=== PATIENT | female | born 1980 | race Caucasian/White ===

== ENCOUNTER → 2016-12-05 | Day surgery (SDC) | payer OTHER ==
[~2016-12-05] MED LIST: HYDROCODON-ACE1 EA12 PO; HYDROCODONE-APA1 T54 PO; PHENERGAN PO; TRAMADOL HCL50 M1 PO
--- NOTE | ~2016-12-05 | OR ---
Unit #: [id number] #: [id number] Patient: NOÉ FLORES [id number] [address] [place], [place] [address] [id number] O MR#: [id number] NAME: NOÉ FLORES ROOM: Date of Procedure: 12/05/2016 Admission Date: 12/05/2016 Surgeon: Carlos A Sprague M.D. : 1980 Attending Physician: Carlos A Sprague M.D. Referring Physician: Carlos A Sprague M.D. OPERATIVE REPORT PREOPERATIVE DIAGNOSIS Arthrofibrosis, status post right knee unicompartmental replacement. POSTOPERATIVE DIAGNOSIS Arthrofibrosis, status post right knee unicompartmental replacement. PROCEDURE PERFORMED Manipulation, right knee. ESTIMATED BLOOD LOSS Zero. ANESTHESIA General. DESCRIPTION OF PROCEDURE The patient was brought to the operating room, given a general anesthetic. She had full extension preoperatively and about 75 degrees of flexion. We were able to manipulate her knee with palpable and audible release of adhesions with flexion to 125 degrees. The knee was cycled through range of motion two or three times and then the manipulation was complete. Her general anesthetic was reversed and she was transferred to the recovery room. Dictated by... Jagruti Love/magda TD: 12/05/2016 16:08 JOB #: [id number] OPERATIVE REPORT X Carlos A Sprague MD X PROCEDURE OPERATIVE NOTE
[2016-12-05 08:42] LABS: URINE APPEARANCE CLOUDY; URINE BILIRUBIN NEG (NEG); URINE BLOOD 2+ (NEG); URINE COLOR YELLOW; URINE GLUCOSE NEG (NEG); URINE KETONE NEG (NEG); URINE LEUKOCYTE ESTERASE NEG (NEG); URINE NITRATE NEG (NEG); URINE PROTEIN NEG (NEG); URINE SPECIFIC GRAVITY 1.028 (1.003-1.035); URINE UROBILINOGEN 0.2 MG/DL (NEG)
[2016-12-05 08:44] LABS: CULTURE INDICATED? YES; URINE BACTERIA AUWI 2+ (NEGATIVE); URINE SQUAMOUS EPITHELIAL CELL FEW /[HPF]; UWBCS1 AUWI 0-2 (0-5)
[2016-12-05 08:44] LABS: HEMATOCRIT 37.2 % (35.0-45.0); HEMOGLOBIN 12.1 gm/dL (12.0-16.0); MEAN CELL VOLUME 79.6 FL (83-96); MEAN CORPUSCULAR HEMOGLOBIN 25.8 PG (28-34); MEAN CORPUSCULAR HGB CONC 32.4 g/dL (30-36); MEAN PLATELET VOLUME 8.4 FL (6.5-11.5); RED BLOOD COUNT 4.67 X10e (3.90-5.30); RED CELL DISTRIBUTION WIDTH 15.2 % (11.0-15.5); WHITE BLOOD COUNT 6.8 X10e3 (4.0-10.5)
[2016-12-05 09:12] LABS: BLOOD UREA NITROGEN 17 mg/dL (9-23); BUN/CREATININE RATIO 21.25; CARBON DIOXIDE 24 mmol/L (22-31); CHLORIDE 105 mmol/L (100-111); CREATININE SERUM 0.8 mg/dL (0.6-1.4); GLOM FILT RATE Estimated ABOVE60 mL/min (>60); GLUCOSE FASTING 93 mg/dL (70-110); POTASSIUM 3.9 mmol/L (3.5-5.1); SODIUM 138 mmol/L (135-145)
== END | disposition home or self-care (01) ==
LOC: CSUR 07:40
PROVIDERS: Orthopaedic Surgery
DX: M24.661 Ankylosis, right knee (principal); Z96.651 Presence of right artificial knee joint; Z87.891 Personal history of nicotine dependence; K21.9 Gastro-esophageal reflux disease without esophagitis
CPT/HCPCS: 80048; 81003; 84703; 85027; 87086; J1100; J2250; J2405; J3010